=== PATIENT | male | born 1985 | race Hispanic/Latino ===

== ENCOUNTER 2023-06-27 12:22 | Emergency (ER) | payer OTHER ==
[~2023-06-27] VITALS: Ht 162.6 cm; Wt 99.8 kg
[2023-06-27] MEDS: ACETAMINOPHEN 325 MG TAB PO ONE (13:43)
[2023-06-27 15:34] VITALS: BP 110/76; PULSE 70; RESP 16; O2SAT 98
== END 2023-06-27 15:47 | disposition home or self-care (01) ==
LOC: EDH 12:22
DX: S51.811A Laceration without foreign body of right forearm, initial encounter (principal); W18.39XA Other fall on same level, initial encounter; Y93.89 Activity, other specified; Y92.89 Other specified places as the place of occurrence of the external cause; Y99.8 Other external cause status
CPT/HCPCS: 12004; 73110; 73130

== ENCOUNTER 2023-07-12 15:02 | Emergency (ER) | payer OTHER ==
[~2023-07-12] VITALS: Ht 162.6 cm; Wt 99.8 kg
[2023-07-12 15:15] VITALS: BP 129/91; PULSE 99; RESP 18; O2SAT 98
== END 2023-07-12 17:36 | disposition left against medical advice (07) ==
LOC: EDH 15:02
DX: S51.811D Laceration without foreign body of right forearm, subsequent encounter (principal); X58.XXXD Exposure to other specified factors, subsequent encounter
CPT/HCPCS: 99281

== ENCOUNTER → 2025-01-04 | Emergency (ER) | payer SELFPAY ==
[~2025-01-04] VITALS: Ht 162.6 cm; Wt 72.6 kg
--- NOTE | 2025-01-04 04:44 | NUR ---
REPORT TO [facility] [place]
[2025-01-04 04:45] VITALS: BP 132/85; PULSE 84; RESP 18; TEMP 98.5; O2SAT 98
--- NOTE | 2025-01-04 04:50 | NUR ---
ELOPEMENT PATIENT WAS ASSESSED BY ED MD AND ED RN AT BEDSIDE. PATIENT REPORTS SENSATION OF FOREIGNBODY TO RIGHT EAR. PATIENTS EARS WERE VISUALIZED BY ED RN AND MD AND NO FOREIGN BODY NOTED TO BE IN EITHER EAR. PATIENT SOON EXITED ED WITHOUT INFORMING ED STAFF.
--- NOTE | 2025-01-04 05:03 | ERN ---
ED Note History of Present Illness Stated Complaint: F/O BILATERAL EAR Chief Complaint: Foreignbody Ear Time Seen by MD: 04:43 Dictation: Patient is a 39-year-old male who presented to ER complaining of feeling boggy inside of his right ear x4 days. Allergies: Coded Allergies: No Known Drug Allergies (Unverified Allergy, Unknown, 06/27/23) Penicillins (Unverified Allergy, Unknown, 07/12/23) iodine (Unverified Allergy, Unknown, 07/12/23) Past Medical History Past Medical History: No Pertinent History Surgical History: None Review of System Dictation NEGATIVE EXCEPT PER HPI Constitutional: Negative for fever,chills, and weight loss Eyes: Negative for injury, pain,redness, and discharge ENT: Complaining of feeling a boggy inside of his right ear Cardiovascular: denies chest pain, palpitations, and edema Respiratory: Negative for shortness of breath, cough, and wheezing, Abdomen/GI: Negative for abdominal pain, nausea, vomiting, diarrhea, and constipation Back: Negative for injury and pain : Negative for injury, bleeding and discharge MS/Extremity: Negative for injury and deformity Skin: Negative for rash, and discoloration Neuro: Negative for headache, weakness, numbness, tingling, and seizure Psych: Negative for suicide ideation, homicidal ideation, and hallucinations Initial Vital Sign VS Vital Signs Date Time Temp Pulse Resp B/P (MAP) Pulse Ox O2 Delivery O2 Flow Rate FiO2 01/04/25 04:41 98.4 101 20 139/90 100 Room Air Physical Exam Dictation General: awake, alert, NAD Head/Face: Normocephalic, atraumatic Eyes: PERRL, EOMI, vision at baseline ENT: oral cavity clear, TMs clear in the right side, there is a small piece of wax. There was no foreign body seen inside. Neck: Trachea midline, supple, no nuchal rigidity Cardiovascular: RRR, normal S1/S2, No MRGs, no JVD Respiratory: CTAB, no respiratory distress, No rales or wheezes Abdomen: Soft , no tender Skin: Warm, dry, normal turgor, no rash MS/Extremity: Pulses equal, no cyanosis, neurovascular intact, FROM Neuro: COAx4, GCS 15, strength 5/5, CN 2-12 intact, normal cerebellar exam, normal gait, Psych: Normal behavior, mood, and affect normal ED Course ED Course Vital Signs Date Time Temp Pulse Resp B/P (MAP) Pulse Ox O2 Delivery O2 Flow Rate FiO2 01/04/25 04:41 98.4 101 20 139/90 100 Room Air Medical Decision Making MDM 39-year-old male complaining of foreign body on his right ear. Physical exam was performed that was only walks inside of the ear. No foreign body or insect was seen. Patient eloped after hearing that was no foreign body inside of his ear. DX & DISP Disposition: AMA Departure Impression: Primary Impression: Excessive wax in left ear Additional Impression: Excessive ear wax Condition: Stable Referrals: NONE (PCP) Patient eloped SUSAN MORRISSEY MD Jan 04, 2025 05:03
== END | disposition left against medical advice (07) ==
LOC: EDH 04:39
DX: H61.22 Impacted cerumen, left ear (principal); Z88.0 Allergy status to penicillin; Z88.8 Allergy status to other drugs, medicaments and biological substances
CPT/HCPCS: 99282